=== PATIENT | male | born 2000 | race Caucasian/White ===

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

== ENCOUNTER → 2021-04-14 14:12 | Outpatient (CLI) | payer OTHER, SELFPAY | PROVIDERS: PCP Internal Medicine Adolescent Medicine; Visit Provider Nurse Practitioner | DX: U07.1 COVID-19 (principal) | CPT/HCPCS: C9803; U0003; U0005 ==

== ENCOUNTER 2021-05-16 03:14 | Emergency (ER) | payer SELFPAY ==
[2021-05-16 03:17] VITALS: BP 130/72; PULSE 100; RESP 17; TEMP 36.9; O2SAT 99; BMI 17.3
--- NOTE | 2021-05-16 03:23 | ECG_ITS ---
APPROVED REPORT Exam: Resting ECG HR:87 bpm ECG Measurements Heart Rate 87 AXES AK 127 P 80 QRSd 104 QRS 89 QT 346 T 68 QTc 390 Conclusion SINUS RHYTHM NORMAL ECG UNCONFIRMED REPORT Electronically signed by : Micha Patel MD 05/16/2021 09:10:21
[2021-05-16 03:32] VITALS: BMI 16.7
[2021-05-16 03:45] LABS: Basophils % 0.4 % (0.1-2.0); Eosinophils # 0.1 K/mm3 (0.0-0.4); Eosinophils % 0.5 % (0.1-12.0); Hematocrit 46.5 % (42.0-52.0); Hemoglobin 16.2 g/dL (14.1-18.0); Lymphocytes # 1.5 K/mm3 (0.7-4.5); Lymphocytes % 15.9 % (10-50); Mean Corpuscular HGB Conc 34.9 g/dL (31.8-35.4); Mean Corpuscular Hemoglobin 30.2 pg (27.0-31.2); Mean Corpuscular Volume 86.6 fl (80-94); Mean Platelet Volume 6.5 fl (7.4-10.4); Monocytes # 0.4 K/mm3 (0.1-1.0); Monocytes % 4.4 % (1.7-9.3); Neutrophils # 7.6 K/mm3 (1.8-7.8); Neutrophils % 78.6 % (37.0-80.0); Platelet Count 270 K/mm3 (142-424); Red Blood Count 5.37 M/mm3 (4.60-6.20); Red Cell Distribution Width 12.8 % (11.5-17.5); White Blood Count 9.7 K/mm3 (4.5-13.0)
[2021-05-16 03:46] LABS: Microscopic, Urine URINE MICROSCOPIC (MICROSCOPIC)
[2021-05-16 03:51] LABS: Appearance,Urine CLEAR (Clear); Blood, Urine Negative (Negative); Color,Urine YELLOW (Yellow); Glucose,Urine (UA) Negative (Negative); Ketones,Urine 1+ (Negative); Leukocyte Esterase,Urine Negative (Negative); Nitrate,Urine Negative (Negative); Protein,Urine 1+ (Negative); Specific Gravity, Urine >= 1.030 (1.005-1.030); Urobilinogen,Urine 0.2 EU/dl (0.2)
[2021-05-16 03:53] LABS: Alanine Aminotransferase 19 U/L (12-78); Albumin Level 5.1 g/dl (3.5-5.0); Albumin/Globulin Ratio 1.8 (1.1-1.8); Alkaline Phosphatase 52 U/L (38-126); Anion Gap 15.6 mEq/L (5-15); Aspartate Amino Transferase 30 U/L (17-59); Bilirubin,Total 0.5 mg/dl (0.2-1.3); Blood Urea Nitrogen 20 mg/dl (9-20); Calcium 9.3 mg/dl (8.4-10.2); Carbon Dioxide 27 mmol/L (22.0-30.0); Chloride 103 mmol/L (98-107); Creatinine Clearance Estimated 123 mL/min (50-200); Estimated Glomerular Filt Rate 123 ml/min (>60); GFR (African American) 149 ML/MIN (>60); Globulin 2.8 g/dL (1.3-3.2); Glucose 154 mg/dl (74-100); Potassium 3.6 mmoL/L (3.5-5.1); Sodium 142 mmol/L (136-145); Total Protein,Serum 7.9 g/dl (6.3-8.2)
[2021-05-16 03:58] LABS: Bilirubin,Urine Negative (Negative)
[2021-05-16 03:58] LABS: C-Reactive Protein 1.3 mg/L (0-4)
[2021-05-16 03:58] LABS: Lactic Acid 0.8 mmol/L (0.7-2.1)
[2021-05-16 03:59] LABS: Amorphous Sediment,Urine Trace /lpf
[2021-05-16 04:04] LABS: Amphetamine/Metha Screen,Urine Negative ng/ml (<1000)
[2021-05-16 04:05] LABS: Barbiturates Screen,Urine Negative ng/ml (<200)
[2021-05-16 04:06] LABS: Cannabinoid Screen,Urine Positive ng/ml (<50); Cocaine Screen,Urine Negative ng/ml (<300)
[2021-05-16 04:07] LABS: Methadone Screen,Urine Negative ng/ml (<300)
[2021-05-16 04:08] LABS: Erythrocyte Sedimentation Rate 2 mm/hr (0-15)
[2021-05-16 04:08] LABS: Opiate Screen,Urine Negative ng/ml (<300); Phencyclidine Screen,Urine Negative ng/ml (<25)
[2021-05-16 04:09] LABS: Troponin I < 0.01 ng/ml (0.00-0.034)
[2021-05-16 04:11] LABS: Benzodiazepines Screen,Urine Negative ng/ml (<200)
[2021-05-16 04:12] LABS: Procalcitonin 0.089 ng/mL (0.0-2.0)
[2021-05-16 04:32] VITALS: BP 99/53; PULSE 87; O2SAT 99
--- NOTE | 2021-05-16 04:55 | HMH.EDSYNC ---
ED Disposition Clinical Impression: Vasovagal syncope Disposition: Home, Self-Care Condition on Discharge: Good Instructions: DI for Syncope in Adults (Fainting) Additional Instructions: fluids and see pcp for follow up Referrals: Micha Patel MD [Primary Care Provider] - - Critical Care Critical Care Time: No Attestation: On 05/16/21, the high probability of a clinically significant, sudden or life threatening deterioration of the following system(s) required my full and direct attention, intervention and personal management. The time I documented below is in addition to time spent performing reported procedures but includes the following listed in this critical care notation. Medical Decision Making - Medical Records Medical records reviewed: Yes: I reviewed the patient's medical records. - Massimo Inquiry Pt receiving controlled substance: No Vital Signs: 05/16/21 03:17 05/16/21 04:32 Temperature 98.4 F Temperature Source Oral Pulse Rate 87 Pulse Rate [Right] 100 H Respiratory Rate 17 Blood Pressure 99/53 L Blood Pressure [Right Arm] 130/72 Blood Pressure Mean 68 Blood Pressure Mean [Right Arm] 91 02 Sat by Pulse Oximetry 99 99 Oxygen Delivery Method Room Air - Lab Data Lab results reviewed: Yes: I reviewed the patient's lab results. Lab Results 05/16/21 03:24: Urine Opiates Screen Negative, Urine Methadone Screen Negative, Ur Barbituates Screen Negative, Ur Phencyclidine Scrn Negative, Ur Amphetamines Screen Negative, U Benzodiazepines Scrn Negative, Urine Cocaine Screen Negative, U Marijuana (THC) Screen Positive H 05/16/21 03:31: WBC 9.7, RBC 5.37, Hgb 16.2, Hct 46.5, MCV 86.6, MCH 30.2, MCHC 34.9, RDW 12.8, Plt Count 270, MPV 6.5 L, Neut % (Auto) 78.6, Lymph % (Auto) 15.9, [place] % (Auto) 4.4, Eos % (Auto) 0.5, Baso % (Auto) 0.4, Neut # (Auto) 7.6, Lymph # (Auto) 1.5, [place] # (Auto) 0.4, Eos # (Auto) 0.1, Baso # (Auto) 0.0, ESR 2 05/16/21 03:31: Sodium 142, Potassium 3.6, Chloride 103, Carbon Dioxide 27, Anion Gap 15.6 H, BUN 20, Creatinine 0.80, Estimated Creat Clear 123, Estimated GFR 123, Est GFR ( Amer) 149, Glucose 154 H, Calcium 9.3, Total Bilirubin 0.5, AST 30, ALT 19, Alkaline Phosphatase 52, Troponin I < 0.01, C-Reactive Protein 1.3, Total Protein 7.9, Albumin 5.1 H, Globulin 2.8, Albumin/Globulin Ratio 1.8, Procalcitonin 0.089 05/16/21 03:38: Urine Color Yellow, Urine Appearance Clear, Urine pH 6.0, Ur Specific [place] >= 1.030, Urine Protein 1+, Urine Glucose (UA) Negative, Urine Ketones 1+, Urine Blood Negative, Urine Nitrate Negative, Urine Bilirubin Negative, Urine Urobilinogen 0.2, Ur Leukocyte Esterase Negative, Urine WBC 3-5, Amorphous Sediment Trace, Hyaline Casts 3-5 05/16/21 03:40: Lactate 0.8 Result diagrams: 05/16/21 03:31 05/16/21 03:31 Orders (Tests/Meds): ED MEDICATIONS Generic Name Dose Route Start Last Admin Trade Name Freq PRN Reason Stop Dose Admin Sodium Chloride 1,000 mls @ 999 mls/hr 05/16/21 04:15 05/16/21 04:06 Sod Chlor 0.9% 1000ml Bag IV 05/16/21 05:15 999 mls/hr .Q1H1M GIN Administration Discontinued Medications Generic Name Dose Route Start Last Admin Trade Name Freq PRN Reason Stop Dose Admin Ondansetron HCl 4 mg 05/16/21 04:02 05/16/21 04:06 Ondansetron 4mg/2ml Vial IV 05/16/21 04:03 4 mg ONCE ONE Administration ORDERS Category Date Time Status Troponin I Q3H Lab 05/16/21 06:45 Ordered Troponin I Q3H Lab 05/16/21 09:45 Ordered Medical Decision Narrative: stable exam and labs with prob vasovagal episode Syncope HPI - General Chief Complaint: Syncope Stated Complaint: Passed Out;Possible Seizure Time Seen by Provider: 05/16/21 03:20 Mode of Arrival: Family Vehicle Source of Information: Patient, Parent(s), Medical Record Limitations: No Limitations Description of Symptoms (Recalled from ER Triage Doc. by RN): Pt reports he was smoking marijuana about 2330 (05/15) and shortly
--- NOTE | 2021-05-16 05:00 | PC.NURSE ---
Dr. Keith s/w pt's mother, updating on poc
[2021-05-16 05:01] VITALS: BP 110/65; PULSE 81; RESP 16; TEMP 36.8; O2SAT 97
[2021-05-16 05:40] LABS: Ethyl Alcohol < 10 mg/dl (0-10)
== END 2021-05-16 05:46 | disposition home or self-care (01) ==
PROVIDERS: Emergency Provider Emergency Medicine; PCP Internal Medicine Adolescent Medicine
DX: R55 Syncope and collapse (principal); F12.10 Cannabis abuse, uncomplicated
CPT/HCPCS: 80053; 80305; 81001; 83605; 84145; 84484; 85025; 85651; 86140; 93005; 96365; 96375; 99283; 99284; J2405

== ENCOUNTER 2021-11-06 18:15 | Emergency (ER) | payer SELFPAY ==
[2021-11-06 18:26] VITALS: BP 150/59; PULSE 90; RESP 16; TEMP 36.8; O2SAT 100; BMI 16.2
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
[2021-11-06 19:54] VITALS: BP 150/59; PULSE 90; RESP 16; TEMP 36.8
== END 2021-11-06 19:57 | disposition home or self-care (01) ==
PROVIDERS: Emergency Provider Nurse Practitioner Family; PCP Internal Medicine Adolescent Medicine
DX: S62.366A Nondisplaced fracture of neck of fifth metacarpal bone, right hand, initial encounter for closed fracture (principal); M25.531 Pain in right wrist; Z79.1 Long term (current) use of non-steroidal anti-inflammatories (NSAID); W22.8XXA Striking against or struck by other objects, initial encounter; Y92.009 Unspecified place in unspecified non-institutional (private) residence as the place of occurrence of the external cause
CPT/HCPCS: 73110; 73130; 99213; G0463

== ENCOUNTER → 2021-11-27 14:34 | Outpatient (CLI) | payer SELFPAY ==
--- NOTE | 2021-11-27 14:37 | XR_ITS ---
FINAL REPORT CLINICAL HISTORY: right hand pain COMPARISON: 11/06/2021 FINDINGS: Right hand Three views were obtained. Again identified is a fracture of the distal 5th metacarpal with palmar angulation of the distal fracture fragment. The bony alignment is stable. Cast obscures the detail but there appears to be callus formation since the prior. IMPRESSION: Fracture of the distal 5th metacarpal with apparent callus formation. Reviewed, Interpreted and Dictated by Chapin Hughes III, MD Transcribed by Cathy Rebollar Authenticated and [facility]
== END ==
PROVIDERS: PCP Internal Medicine Adolescent Medicine; Visit Provider Orthopaedic Surgery
DX: M79.641 Pain in right hand (principal)
CPT/HCPCS: 73130

== ENCOUNTER → 2021-12-25 11:26 | Outpatient (CLI) | payer SELFPAY ==
--- NOTE | 2021-12-25 11:29 | XR_ITS ---
FINAL REPORT CLINICAL HISTORY: rt hand fracture COMPARISON: 11/27/2021 FINDINGS: Right hand Three views were obtained. There is a boxer's fracture of the 5th metacarpal with volar displacement, similar to previous. The bony detail is obscured by fiberglass cast. There are no significant changes of healing. The joint spaces appear normal. No soft tissue abnormality is identified. IMPRESSION: Boxer's fracture of the 5th metacarpal as above. Reviewed, Interpreted and Dictated by Kathy Vaughan MD Transcribed by Cathy Rebollar Authenticated and [facility]
== END ==
PROVIDERS: PCP Internal Medicine Adolescent Medicine; Visit Provider Orthopaedic Surgery
DX: S62.366A Nondisplaced fracture of neck of fifth metacarpal bone, right hand, initial encounter for closed fracture (principal)
CPT/HCPCS: 73130

== ENCOUNTER 2021-12-28 12:55 | Outpatient (RCR) | payer SELFPAY | END 2021-12-28 12:59 | disposition home or self-care (01) | LOC: OT 12:55 | PROVIDERS: Visit Provider Orthopaedic Surgery | DX: S62.366A Nondisplaced fracture of neck of fifth metacarpal bone, right hand, initial encounter for closed fracture (principal) | CPT/HCPCS: 97760 ==

== ENCOUNTER 2022-02-14 14:19 | Emergency (ER) | payer SELFPAY ==
[2022-02-14 15:00] VITALS: BP 108/61; PULSE 100; RESP 17; TEMP 36.8; O2SAT 99; BMI 17.9
[2022-02-14 15:22] LABS: Coronavirus 19, PCR Not Detected (NotDetected); Influenza A, PCR Not Detected (NotDetected); Influenza B, PCR Not Detected (NotDetected)
--- NOTE | 2022-02-14 16:01 | PC.NURSE ---
DR. ALVA AT BEDSIDE
--- NOTE | 2022-02-14 16:08 | HMH.EDGENADL ---
Discharge Plan Disposition Patient Disposition: Home, Self-Care Condition: Good Chief Complaint: Upper Respiratory Infection Prescriptions Prescriptions: No Action ibuprofen 600 MG tablet 600 mg PO Q6HP PRN (Reason: Mild Pain) Qty: 30 0RF Referrals Follow up/Referrals: Micha Patel MD [Primary Care Provider] - See instructions Activity Restrictions/Add. Instructions Additional Instructions/Restrictions: Zofran as needed for nausea or vomiting. Tylenol or ibuprofen as needed for pain or fever. [id number] Robitussin as needed for cough. Follow-up with primary care provider if not improved in 4 to 5 days. Clinical Impressions Clinical Impression: Upper respiratory infection, viral Stand Alone Forms Stand Alone Forms: Work/School Release Instructions Patient Instructions: DI for Viral Upper Respiratory Infection -- Adult, DI for Vomiting -- Adult Discharge ED Provider: Doc Elizondo General Adult HPI General Chief complaint: Upper Respiratory Infection Stated complaint: Vomiting,Congestion Time Seen by Provider: 02/14/22 16:00 Mode of Arrival: Ambulatory Limitations: No Limitations Description of Symptoms (Recalled from ER Triage Doc. by RN): PT REPORTS VOMITING FOR A COUPLE OF DAYS, COUGH CHILLS AND CONGESTION. DAUGHTER HAS RSV History of Present Illness HPI narrative: Patient has been sick for about 3 to 4 days. He has had vomiting, particularly in the morning. He has had a cough, but his cough is much better today. He has had some congestion. Rhinorrhea and sore throat. No diarrhea. He has had some intermittent abdominal pain. Denies fever. His daughter has been diagnosed with RSV, seen by me in this emergency department a couple of days ago. His daughter is also being seen in the emergency department again today. Patient states that he had to miss work today and yesterday. Related Data Previous Rx's Medication Instructions Recorded ibuprofen 600 mg tablet 600 mg PO Q6HP PRN Mild Pain #30 11/06/21 tabs Allergies Allergy/AdvReac Type Severity Reaction Status Date / Time No Known Allergies Allergy Verified 12/25/21 11:41 [facility], [facility] Social History Smoking Status: Never smoker alcohol intake: never substance use type: denies use current occupational status: unemployed Travel in the last 8 weeks: None household members: family housing: house ROS Obtained: Yes Systems reviewed as appropriate & no additional complaints except as documented Constitutional Constitutional: Denies fever(s) ENT Ears, Nose, Mouth, and Throat: Reports nasal discharge and Reports sore throat Respiratory Respiratory: Reports non-productive cough Gastrointestinal Gastrointestingal: Reports abdominal pain and vomiting; Denies diarrhea Physical Exam General General appearance: alert and in no apparent distress Eye Eye exam: Present PERRL; Absent conjunctival injection ENT ENT exam: Present normal exam, normal oropharynx, mucous membranes moist and TM's normal bilaterally Neck Neck exam: Present normal inspection and trachea midline; Absent meningismus or lymphadenopathy Chest Chest inspection: Present normal inspection and symmetric chest wall rise Respiratory Respiratory exam: Present normal lung sounds bilaterally; Absent respiratory distress or wheezes Cardiovascular Cardiovascular exam: Present regular rate, normal rhythm and normal heart sounds Abdominal Exam Abdominal exam: Present soft; Absent distention or tenderness Extremities Exam Extremities exam: Present normal inspection Neurological Exam Neurological exam: Present alert and oriented X3 Psychiatric Psychiatric exam: Present normal affect and normal mood Skin Skin exam: Present warm and dry Medical Decision Making Massimo Inquiry Pt receiving controlled substance: No Vital Signs: 02/14/22 15:00 Temperature 98.2 F Temperature Source Oral
[2022-02-14 17:02] VITALS: BP 110/70; PULSE 90; RESP 19; TEMP 36.8; O2SAT 99
== END 2022-02-14 17:03 | disposition home or self-care (01) ==
PROVIDERS: Emergency Provider Emergency Medicine; PCP Internal Medicine Adolescent Medicine
DX: J06.9 Acute upper respiratory infection, unspecified (principal); J02.9 Acute pharyngitis, unspecified; R10.9 Unspecified abdominal pain; R11.10 Vomiting, unspecified; R05.9 Cough, unspecified; Z79.1 Long term (current) use of non-steroidal anti-inflammatories (NSAID)
CPT/HCPCS: 99283; C9803; U0003; U0005